=== PATIENT | male | born 1960 | race Caucasian/White ===

== ENCOUNTER 2022-04-20 12:08 | Inpatient (IN) | payer MEDICARE, OTHER ==
[~2022-04-20] VITALS: Ht 182.9 cm; Wt 107.3 kg
[2022-04-20] MEDS ORDERED: ASPirin 81 mg TAB PO ONE (12:15)
[2022-04-20] MEDS ORDERED: SODIUM CHLORIDE 0.9% 1,000 ML IVB ONE (12:15)
[2022-04-20 12:47] LABS: Basophils # (auto) 0 10 ^3/uL (0-0.2); Basophils % (auto) 0.5 % (0.0-2.0); Eosinophils # (auto) 0.1 10 ^3/uL (0-0.8); Eosinophils % (auto) 1.4 % (0.0-7.0); Hematocrit 47.5 % (41.0-53.0); Hemoglobin 15.8 g/dL (13.5-17.5); Lymphocytes # (auto) 2.8 10 ^3/uL (0.4-5.4); Lymphocytes % (auto) 47.1 % (10.0-50.0); Mean Corpuscular Hemoglobin 31.8 pg (28.0-32.0); Mean Corpuscular Hgb Conc. 33.3 g/dL (32.0-36.0); Mean Corpuscular Volume 95.6 fL (80.0-100.0); Monocytes # (auto) 0.6 10 ^3/uL (0-1.3); Monocytes % (auto) 9.9 % (0.0-12.0); Neutrophils # (auto) 2.4 10 ^3/uL (1.6-8.6); Neutrophils % (auto) 41.1 % (37.0-80.0); Nucleated Red Blood Cells % 0.3 %; Red Blood Cells 4.97 10^6/uL (4.5-5.90)
[2022-04-20 12:58] LABS: Albumin 3.5 g/dL (3.4-5.0); Magnesium 2.2 mg/dL (1.6-2.6); Potassium 4.1 mmol/L (3.5-5.1)
[2022-04-20 13:02] LABS: BUN/Creatinine Ratio 10.9; Bilirubin, Total 0.7 mg/dL (0.2-1.0)
[2022-04-20 14:57] LABS: Amylase 23 U/L (25-115); Lipase 178 U/L (73-393)
[2022-04-20] MEDS ORDERED: LORazepam 2MG/ML-1ML VIAL IV PRN (15:15)
[2022-04-20] MEDS ORDERED: ONDANSETRON HCL 4 MG/2 ML VIAL IV PRN (15:15)
[2022-04-20] MEDS ORDERED: MORPHINE SULFATE INJ 2 MG/ml SYRG IV PRN (15:15)
[2022-04-20] MEDS ORDERED: NICOTINE 7MG/24HR TOPICAL PATCH TD ONE (15:30)
[2022-04-20] MEDS ORDERED: DEXTROSE (50%) 50ML SYRG IV PRN (15:30)
[2022-04-20] MEDS ORDERED: SODIUM CHLORIDE 0.9% 1,000 ML IV ONE (15:30)
[2022-04-20 15:58] LABS: Cholesterol 174 mg/dL (< 200); HDL Cholesterol 43 mg/dL (40-59); LDL Cholesterol 96 mg/dL (< 100); Triglycerides 387 mg/dL (< 150)
[2022-04-20 17:00] LABS: Amphetamine Screen, Urine NEGATIVE (NEGATIVE); Barbiturate Scree,Urine NEGATIVE (NEGATIVE); Benzodiazephine Screen, Urine NEGATIVE (NEGATIVE); Cannabinoid Screen, Urine NEGATIVE (NEGATIVE); Cocaine Screen, Urine NEGATIVE (NEGATIVE); Opiate Scree,Urine NEGATIVE (NEGATIVE); Phencyclidine Screen, Urine NEGATIVE (NEGATIVE)
[2022-04-20] MEDS: InsuLIN REG 1unit/0.01ml Soln (100units/ml) SC SCH ×2 (17:11→22:13)
[2022-04-20] MEDS: ACCU-CHEK COMFORT CURVE STRIP VI SCH ×2 (17:11→22:11)
[2022-04-20] MEDS: FOLIC ACID 1 MG, MULTIPLE VITAMIN 10 ML, THIAMINE INJ 100 MG in SODIUM CHLORIDE 0.9% 1,... INJ SCH (17:21)
[2022-04-20 21:21] VITALS: BP 148/83
[2022-04-20 21:35] VITALS: BP 148/83
[2022-04-20 22:18] VITALS: BP 148/83
[2022-04-21 04:45] VITALS: BP 146/94
[2022-04-21 05:50] LABS: Basophils # (auto) 0 10 ^3/uL (0-0.2); Basophils % (auto) 0.6 % (0.0-2.0); Eosinophils # (auto) 0.1 10 ^3/uL (0-0.8); Eosinophils % (auto) 2.3 % (0.0-7.0); Hematocrit 42.3 % (41.0-53.0); Hemoglobin 14.4 g/dL (13.5-17.5); Lymphocytes # (auto) 1.8 10 ^3/uL (0.4-5.4); Mean Corpuscular Hemoglobin 32.7 pg (28.0-32.0); Monocytes # (auto) 0.4 10 ^3/uL (0-1.3); Monocytes % (auto) 8.2 % (0.0-12.0); Neutrophils # (auto) 2.8 10 ^3/uL (1.6-8.6); Neutrophils % (auto) 54.9 % (37.0-80.0); Nucleated Red Blood Cells % 0.1 %; Red Blood Cells 4.41 10^6/uL (4.5-5.90); Red Cell Distribution Width 13.8 % (11.8-14.3); White Blood Cell 5.2 10^3/uL (4.4-10.8)
[2022-04-21 06:08] LABS: BUN/Creatinine Ratio 11.4; Calcium 7.6 mg/dL (8.5-10.1); Potassium 3.5 mmol/L (3.5-5.1)
[2022-04-21 06:10] LABS: Bilirubin, Total 1.4 mg/dL (0.2-1.0); Total Protein 6.3 g/dL (6.4-8.2)
[2022-04-21] MEDS: ACCU-CHEK COMFORT CURVE STRIP VI SCH ×4 (07:29→21:20)
[2022-04-21] MEDS: InsuLIN REG 1unit/0.01ml Soln (100units/ml) SC SCH ×4 (07:37→21:22)
[2022-04-21 09:00] VITALS: BP 98/83
[2022-04-21] MEDS ORDERED: ENOXAPARIN SOD 40 MG/0.4 ML SYRINGE SC SCH (10:00)
[2022-04-21] MEDS ORDERED: LORazepam 2MG/ML-1ML VIAL IV PRN (10:30)
[2022-04-21] MEDS ORDERED: PANTOPRAZOLE 40 MG/10 ML VIAL INJ IV ONE (10:30)
[2022-04-21] MEDS ORDERED: THIAMINE 100mg/ml INJ (200mg/2ml VIAL) IV ONE (10:30)
[2022-04-21] MEDS ORDERED: MIDAZOLAM HCL 2MG/2ML 2ml VIAL (1mg/ml) IV ONE (10:45)
[2022-04-21] MEDS ORDERED: chlordiazePOXIDE HCL 25 MG CAP PO PRN (10:45)
[2022-04-21] MEDS: NICOTINE 7MG/24HR TOPICAL PATCH TD SCH (11:41)
[2022-04-21 13:00] VITALS: BP 163/78
[2022-04-21] MEDS: FOLIC ACID 1 MG, MULTIPLE VITAMIN 10 ML, THIAMINE INJ 100 MG in SODIUM CHLORIDE 0.9% 1,... INJ SCH (14:51)
[2022-04-21 16:59] VITALS: BP 145/79
[2022-04-21 17:19] LABS: Urine Bacteria NONE SEEN /hpf (None Seen); Urine Blood Negative /uL (Negative); Urine WBC 10 /hpf (0 - 3)
[2022-04-21 20:00] VITALS: BP 131/81
[2022-04-21 22:00] VITALS: BP 131/81
[2022-04-22 05:00] VITALS: BP 132/74
[2022-04-22] MEDS: InsuLIN REG 1unit/0.01ml Soln (100units/ml) SC SCH ×2 (06:34→13:16)
[2022-04-22] MEDS: ACCU-CHEK COMFORT CURVE STRIP VI SCH ×2 (06:34→11:30)
[2022-04-22] MEDS: NICOTINE 7MG/24HR TOPICAL PATCH TD SCH ×2 (08:47→08:54)
[2022-04-22 09:00] VITALS: BP 154/84
[2022-04-22] MEDS ORDERED: METOPROLOL TARTRATE 50 MG TAB PO ONE (09:45)
[2022-04-22] MEDS ORDERED: THIAMINE 100mg/ml INJ (200mg/2ml VIAL) IV SCH (10:00)
[2022-04-22] MEDS ORDERED: PANTOPRAZOLE 40 MG/10 ML VIAL INJ IV SCH (10:00)
[2022-04-22] MEDS ORDERED: ASPirin 81 mg TAB PO SCH (10:00)
[2022-04-22] MEDS: FOLIC ACID 1 MG, MULTIPLE VITAMIN 10 ML, THIAMINE INJ 100 MG in SODIUM CHLORIDE 0.9% 1,... INJ SCH (12:00)
[2022-04-22 12:25] VITALS: BP 154/84
== END 2022-04-22 13:10 | disposition home or self-care (01) | DRG 93 ==
LOC: EDBD 12:08 → ER 12:16 → OVERFLOW 15:22 → CENTRAL 20:55 → TELE-CENTR 04-21 18:47
PROVIDERS: ADMIT Registered Nurse; ATTEND Internal Medicine
DX: R20.0 Anesthesia of skin (principal); F10.120 Alcohol abuse with intoxication, uncomplicated; E11.65 Type 2 diabetes mellitus with hyperglycemia; E78.5 Hyperlipidemia, unspecified; D69.59 Other secondary thrombocytopenia; E66.01 Morbid (severe) obesity due to excess calories; I10 Essential (primary) hypertension; Y90.8 Blood alcohol level of 240 mg/100 ml or more; Z96.653 Presence of artificial knee joint, bilateral; Z20.822 Contact with and (suspected) exposure to COVID-19; Z79.84 Long term (current) use of oral hypoglycemic drugs; Z71.6 Tobacco abuse counseling; Z68.32 Body mass index [BMI] 32.0-32.9, adult; F17.210 Nicotine dependence, cigarettes, uncomplicated
CPT/HCPCS: 36415; 70551; 71045; 80053; 80061; 80307; 80320; 81001; 82150; 82962; 83036; 83690; 83735; 83880; 84484; 85025; 93306; 96361; 96365; C9113; G0378; J1815